=== PATIENT | female | born 1960 | race Caucasian/White ===

== ENCOUNTER 2019-05-13 17:34 | Emergency (ER) | payer BC ==
[2019-05-13 17:48] VITALS: BP 131/62
--- NOTE | 2019-05-13 17:49 | UC ---
Skin Complaint HPI - HPI Summary HPI Summary: Patient is a 59-year-old female presenting with for complaint of bilateral left thumb pain for the past 2 days. Patient states that she believes both thumbs have become infected, with a left thumb being worse. Notes similar lesions on elbows that she states "healed." Notes erythema and warmth of pulp of left and right thumbs. States that she has had the same thing on her fingers in the past but always heal on its own. Patient states she has been worked up by PCP and roulette dealer, and neither no what is causing the lesions. Patient states she also has recently had some on her elbows but notes a crusted over and healed. Notes redness of the left thumb has spread today. Denies any drainage or bleeding. PMHx significant for rheumatoid arthritis for which she takes methotrexate and infliximab. Patient states she recently saw her PCP last for sore throat and a sore in her nose that was diagnosed as herpes. Patient states that was treated with Valtrex and no symptoms have improved. States that her PCP checked out the lesions on her fingers that weren 't as bad at the time and stated it may be a side effect of her infusions for her rheumatoid arthritis. He referred her to dermatology for further evaluation and treatment of the lesions. Patient states that she cannot wait until the housekeeping associate, as the pain has worsened. Denies nausea and vomiting. Denies fever and chills. - History of Current Complaint Stated Complaint: FINGER PAIN Hx Obtained From: Patient Current Severity: Severe Pain Intensity: 10 Pain Scale Used: 0-10 Numeric - Allergy/Home Medications Allergies/Adverse Reactions: Allergies Allergy/AdvReac Type Severity Reaction Status Date / Time No Known Allergies Allergy Verified 09/06/18 09:12 Home Medications: Home Medications ValACYclovir (*) [Valtrex 500 mg (*)] 4 tab PO BID 05/13/19 [History Confirmed 05/13/19] inFLIXimab* [Remicade*] 100 mg IV SEE INSTRUCTIONS 05/13/19 [History Confirmed 05/13/19] PMH/Surg Hx/FS Hx/Imm Hx - Additional Past Medical History Additional PMH: rheumatoid arthritis - Surgical History Surgical History: None - Family History Known Family History: Positive: None - Social History Alcohol Use: None Substance Use Type: None Smoking Status (MU): Never Smoked Tobacco Review of Systems All Other Systems Reviewed And Are Negative: Yes Constitutional: Positive: Negative. Negative: Fever, Chills Skin: Positive: Other - "redness, warmth, possible infection of thumbs". Negative: Bruising Respiratory: Positive: Negative Cardiovascular: Positive: Negative Gastrointestinal: Positive: Negative. Negative: Vomiting, Nausea Musculoskeletal: Positive: Edema - pulps of b/l thumbs. Negative: Arthralgia, Decreased ROM Neurological: Negative: Paresthesia, Numbness Physical Exam Triage Information Reviewed: Yes Appearance: Well-Appearing, No Pain Distress, Well-Nourished Vital Signs: Initial Vital Signs Temp 98.0 F 05/13/19 17:41 Pulse 72 05/13/19 17:41 Resp 18 05/13/19 17:41 BP 131/62 05/13/19 17:41 Pulse Ox 96 05/13/19 17:41 Vital Signs Reviewed: Yes Eyes: Positive: Conjunctiva Clear ENT: Positive: Hearing grossly normal Neck: Positive: Supple Respiratory Exam: Normal Respiratory: Positive: Lungs clear, Normal breath sounds, No respiratory distress Cardiovascular Exam: Normal Cardiovascular: Positive: RRR, Brisk Capillary Refill Musculoskeletal: Positive: Strength Intact, ROM Intact, Edema @ - pulp of thumb b/l Neurological Exam: Other - sensation grossly intact Neurological: Positive: Alert Psychological: Positive: Age Appropriate Behavior Skin: Positive: Other - 1cm lesions noted on pulps of b/l thumbs with callused appearance and purulent fluid noted beneath. surround by erythema. L thumb also warm to touch. Course/Dx - Course Course Of Treatment: Callused skin scraped off thumb lesions and minimal pressure applied to allow expression of purulent fluid. minimal amount expressed and wound cultures taken from both sites. Patient revealed pressure relief. Wound dressing applied to lesions and Keflex prescribed for infection. Informed patient that she would be notified with any culture results warranting change in treatment. Educated on s/ s of worsening infection and instructed to go to ED if they occur. Encouraged patient to follow up with housekeeping associate and pcp for reevaluation of symptoms. Patient voiced understanding and agreed with treatment plan. - Diagnoses Provider Diagnosis: Abscess of pulp of left thumb, Abscess of pulp of right thumb Discharge ED - Sign-Out/Discharge Documenting (check all that apply): Patient Departure All imaging exams completed and their final reports reviewed: No Studies - Discharge Plan Condition: Stable Disposition: HOME Prescriptions: Cephalexin CAP* [Keflex CAP*] 500 mg PO TID #19 cap Patient Education Materials: Abscess (ED) Referrals: Dinora Day MD [Primary Care Provider] - As Soon As Possible Additional Instructions: Take 500mg of Keflex every 8 hours. You received the first dose here and the second to take 8 hours later. The remainder of your prescription has been sent to your pharmacy. Wound cultures have been sent and you will be notified with any results warranting change in treatment. Apply warm compresses or warm soaks 2-3 times daily. Otherwise, keep the areas clean and dry. Follow up with your primary care provider or your housekeeping associate as soon as possible for further evaluation of your lesions. Go to the emergency room if you experience fever, increasing redness and warmth to the area over the next 24 hours, or nausea and vomiting. - Billing Disposition and Condition Condition: STABLE Disposition: Home - Attestation Statements Provider Attestation: This patient was not seen by me I was available for consult Chart reviewed SHANITA
[2019-05-13] MEDS ORDERED: Cephalexin CAP* 500 MG PO ONE (18:29)
== END 2019-05-13 18:51 | disposition home or self-care (01) ==
LOC: UCEAST 17:34
DX: L02.512 Cutaneous abscess of left hand (principal); L02.511 Cutaneous abscess of right hand; M06.9 Rheumatoid arthritis, unspecified
CPT/HCPCS: 87070; 87077; 87186; 87205; 87640; 87641; 99213; A9270-GY; G0463